=== PATIENT | male | born 1970 ===

== ENCOUNTER 2022-08-10 14:35 | Emergency (ER) | payer SELFPAY ==
[~2022-08-10] VITALS: Ht 166 cm; Wt 72.5 kg
--- NOTE | 2022-08-10 14:58 | ED GU-Female ---
General Chief Complaint: - Reproductive Stated Complaint: CANNOT URINATE Source: patient Exam Limitations: no limitations History of Present Illness Date Seen by Provider: Aug 10, 2022 Time Seen by Provider: 14:45 Initial Comments Patient is a 52-year-old , Albanian-speaking male with history of prostate enlargement who presents with acute urinary retention. Patient has history of chronic prostate enlargement and had Brock catheter removed by Dr. Fr gutierrez in [place] yesterday. He was placed on antibiotics and Flomax. He urinated minimally since having Brock catheter removed. Reports diffuse lower abdominal pain with inability to urinate. Patient compliant with therapy. No fever chills, nausea vomiting or sweats. History obtained from for personal carer and friend. Timing/Duration: just prior to arrival Severity/Quality: moderate Location: suprapubic Radiation: other Sexual [place] History: other Modifying Factors: Improves With Other Associated Symptoms: other Allergies and Home Medications Allergies Coded Allergies: No Known Drug Allergies (Unverified , 08/10/22) Patient Home Medication List Home Medication List Reviewed: Yes Review of Systems Review of Systems Constitutional: see HPI EENTM: see HPI Respiratory: see HPI Cardiovascular: see HPI Gastrointestinal: see HPI Genitourinary: see HPI Skin: see HPI Psychiatric/Neurological: See HPI Endocrine: See HPI Hematologic/Lymphatic: See HPI All Other Systemes Reviewed Negative Unless Noted: No Past Qxftyyp-Pmtuau-Hmeppg Hx Patient Social History Tobacco Use?: No Substance use?: No Alcohol Use?: No Physical Exam Vital Signs Vital Signs - First Documented 08/10/22 14:42 Pulse 94 B/P (MAP) 154/94 (114) Pulse Ox 99 O2 Delivery Room Air Capillary Refill : Height, Weight, BMI Height: '" Weight: lbs. oz. kg; BMI Method: General Appearance: WD/WN, moderate distress (Secondary to pain) HEENT: PERRL/EOMI Cardiovascular: regular rate, rhythm Respiratory: chest non-tender, lungs clear, normal breath sounds Gastrointestinal: soft, tenderness, other (Diffuse lower abdominal pain/tenderness) Back: no CVA tenderness Neurologic/Psychiatric: alert, normal mood/affect Skin: normal color, warm/dry Focused Exam Sepsis Stage: Ruled Out Progress/Results/Core Measures Suspected Sepsis SIRS Temperature: Pulse: Respiratory Rate: Blood Pressure / Mean: Results/Orders My Orders Orders - GEREMIAS AKHTAR DO Ua Culture If Indicated (08/10/22 14:58) Morphine Injection (Morphine Injection (08/10/22 15:02) Ondansetron Oral Dissolve Tab (Zofran (08/10/22 15:02) Catheter(Urinary) Insert & Ass 03,15 (08/10/22 15:02) Lidocaine 2% (Urojet) (Xylocaine Urojet) (08/10/22 15:15) Vital Signs/I&O 08/10/22 14:42 Pulse 94 B/P (MAP) 154/94 (114) Pulse Ox 99 O2 Delivery Room Air Capillary Refill : Departure Communication (Admissions) Brock catheter placed for relief acute urinary retention with greater than 800 mL of urine output. Patient currently on antibiotics and Flomax. Will send home with plastic bag in place and defer further management per the patient's urologist. Return precautions reviewed. Patient verbalizes understanding agreement with discharge instructions prior to departure. Impression Primary Impression: Acute urinary retention Additional Impression: Enlarged prostate Disposition: HOME, SELF-CARE Condition: Stable Departure-Patient Inst. Decision time for Depature: 15:58 Referrals: NO,LOCAL PHYSICIAN (PCP/Family) Primary Care Physician Patient Instructions: Urinary Retention Add. Discharge Instructions: You were treated in the emergency department for urinary retention due to enlarged prostate. Please leave Brock catheter in place, take current medications as prescribed by Dr. Wise and follow-up with his office next week for further recommendations and management. All discharge instructions reviewed with patient and/or family. Voiced understanding. GEREMIAS AKHTAR DO Aug 10, 2022 14:58
[2022-08-10] MEDS ORDERED: ONDANSETRON 4 MG (ZOFRAN) ORAL DISSOLVE TAB PO STA (15:02)
[2022-08-10] MEDS ORDERED: morphine INJ 10 MG/ML 1ML (SYR OR VIAL) IM STA (15:02)
[2022-08-10] MEDS ORDERED: LIDOCAINE UROJET 2% GEL 10 ML PKG TOP ONE (15:15)
[2022-08-10 16:08] VITALS: BP 143/91
== END 2022-08-10 16:06 | disposition home or self-care (01) ==
LOC: ER 14:39
DX: N40.1 Benign prostatic hyperplasia with lower urinary tract symptoms (principal); R33.8 Other retention of urine
CPT/HCPCS: 51702